=== PATIENT | female | born 1960 | race American Indian/Alaskan Native ===

== ENCOUNTER 2017-09-16 21:44 | Emergency (ER) | payer MEDICAID ==
[2017-09-16 21:47] VITALS: BP 127/87; PULSE 102; RESP 16; TEMP 98.7; O2SAT 98
[2017-09-16 21:48] VITALS: BMI 46.2
--- NOTE | 2017-09-16 22:40 | ED PDOC ---
HPI: Head Injury Time Seen by Provider: 09/16/17 22:28 Chief Complaint (Nursing): Trauma Chief Complaint (Provider): head injury History Per: Patient Additional Complaint(s): 56-year-old female presents to emergency room with headache status post a chair falling on top of her head about 1 hour prior to arrival. Patient felt dizzy and had blurry vision just after impact but this has since subsided. She denies loss of consciousness. No medication taken for pain relief prior to arrival. No open wounds. PMD: none Past Medical History Reviewed: Historical Data, Nursing Documentation, Vital Signs Vital Signs: Last Vital Signs Temp 98.7 F 09/16/17 21:46 Pulse 102 H 09/16/17 21:46 Resp 16 09/16/17 21:46 BP 127/87 09/16/17 21:46 Pulse Ox 98 09/16/17 21:46 - Medical History PMH: No Chronic Diseases - Family History Family History: States: No Known Family Hx - Living Arrangements Living Arrangements: Other (lives in [facility]) - Social History Current smoker - smoking cessation education provided: No Alcohol: None - Allergies Allergies/Adverse Reactions: Allergies Allergy/AdvReac Type Severity Reaction Status Date / Time No Known Allergies Allergy Verified 09/16/17 21:46 Review of Systems ROS Statement: Except As Marked, All Systems Reviewed And Found Negative Eyes: Positive for: Vision Change (earlier, now resolved) Neurological: Positive for: Dizziness (earlier, now resolved), Other (head injury with no LOC) Physical Exam - Reviewed Nursing Documentation Reviewed: Yes Vital Signs Reviewed: Yes - Physical Exam Appears: Positive for: Well, Non-toxic, No Acute Distress Head Exam: Positive for: ATRAUMATIC, NORMAL INSPECTION, NORMOCEPHALIC Skin: Positive for: Normal Color. Negative for: Rash Eye Exam: Positive for: Normal appearance, EOMI, PERRL Neck: Positive for: Normal Neurologic/Psych: Positive for: Alert, Oriented, Gait (steady) - ECG O2 Sat by Pulse Oximetry: 98 Pulse Ox Interpretation: Normal - Other Rad CT head X-Ray: Read By Radiologist X-Ray Interpretation: no acute finding Medical Decision Making Medical Decision Makin56 year old with head injury Plan: CT head PO tylenol CT is negative, patient made aware of results. Advised Tylenol for pain as needed and follow-up with clinic in 2-3 days. Disposition - Clinical Impression Clinical Impression: Head injury - Patient ED Disposition Is Patient to be Admitted: No Counseled Patient/Family Regarding: Studies Performed, Diagnosis, Need For Followup - Disposition Referrals: [facility] [Outside] Disposition: Routine/Home Disposition Time: 23:12 Condition: STABLE Additional Instructions: Tylenol for pain as needed. Follow-up with clinic in 2-3 days or return to ED any time if acutely worse. Instructions: Closed Head Injury (DC) Forms: [employer] ([employer])
--- NOTE | 2017-09-17 10:28 | CT ---
Date of service: 09/16/2017 PROCEDURE: CT HEAD WITHOUT CONTRAST. HISTORY: trauma COMPARISON: None available. TECHNIQUE: Axial computed tomography images were obtained through the head/brain without intravenous contrast. Radiation dose: Total exam DLP = 790.75 mGy-cm. This CT exam was performed using one or more of the following dose reduction techniques: Automated exposure control, adjustment of the mA and/or kV according to patient size, and/or use of iterative reconstruction technique. FINDINGS: HEMORRHAGE: No intracranial hemorrhage. BRAIN: Normal castillo-white matter differentiation and density are appreciated throughout the cerebrum and cerebellum with the brainstem appearing unremarkable as well. There is no mass effect. There is no suspicious extra-axial fluid collection and the midline brain anatomy appears diffusely unremarkable. VENTRICLES: Unremarkable. No hydrocephalus. CALVARIUM: Unremarkable. PARANASAL SINUSES: Unremarkable as visualized. No significant inflammatory changes. MASTOID AIR CELLS: Unremarkable as visualized. No inflammatory changes. OTHER FINDINGS: None. IMPRESSION: Unremarkable noncontrast CT of the Head. Concordant preliminary report from [facility], 09/16/2017.
== END 2017-09-16 23:17 | disposition home or self-care (01) ==
LOC: H.ER 21:44
DX: S09.90XA Unspecified injury of head, initial encounter (principal); W22.8XXA Striking against or struck by other objects, initial encounter; Y92.89 Other specified places as the place of occurrence of the external cause